=== PATIENT | female | born 1985 | race Asian ===

== ENCOUNTER 2019-07-29 08:28 | Inpatient (IN) | payer OTHER ==
[2019-07-29] MEDS ORDERED: Lactated Ringers 1000 ML Bag* 1,000 ML IV ONE (09:48)
--- NOTE | 2019-07-29 10:01 | HP ---
General Information - Reason for Visit IUP at 38-3/7 with prelabor rupture of membranes - General Information Maternal Age: 33 Grav: 1 Para: 0 SAB: 0 IEA: 0 Estimated Due Date: 08/09/19 Determined By: LMP Maternal Blood Type and Rh: B Positive - Results this Serology/RPR Result: Non-Reactive Rubella Result: Immune HBsAg Result: Negative HIV Result: Negative GBS Culture Result: Negative Past Medical History Delivery History: See Records Pertinent Past Medical History: See Records Past Medical History Comment: Primigravida Pertinent Past Surgical History: None Past Surgical History Comment: None Pertinent Family History: Non-Contributory - Antepartal Records Antepartal Records: Reviewed, Complicated by: - Unplanned , elevated EPDS score on entry to care. Strong family support. Hypocoiled umbilical cord tracked with q 4 week growth sonos all WNL Review of Systems Constitutional: Comfortable CV Complaint: No Respiratory: Shortness of Breath: No Gastrointestinal: No Nausea/Vomiting, Normal Bowel Movement Genitourinary: Leaking Fluid, No Dysuria, No Bleeding Musculoskeletal: No Complaint, No Epigastric Pain Neurological: No Headache Movement: Normal Exam Allergies/Adverse Reactions: Allergies No Known Allergies Allergy (Verified 07/26/19 13:35) BP 96/74 HR 92 RR 18 SpO2 100% on RA - Measurements Height: 5 ft 6 in Weight: 172 lb Weight in lbs: [id number] Body Mass Index (BMI): 27.7 Pre- Weight: 128 lb Weight Gained This : 44 lbs and 0 ozs - Exam CVA: No CVA Tenderness Extremities: No Edema Heart: Normal Rhythm/Heart Sounds HEENT: No Significant Findings Lungs: Clear Bilaterally Rectal: Rectal Exam Deferred Reflexes: DTR 2+ Thyroid: No Thyromegaly - Abdominal Exam Abdomen Exam: Non-Tender - Ultrasound/Biophysical Profile Ultrasound Status: Not Done Targeted Exam Findings Estimated Weight: EFW 7lbs 9oz by sono 07/26/19 Cervical Exam: 1cm Effacement: Thick Station: -2 Presenting Part: Vertex Membrane Status: SROM Amniotic Fluid Evaluation: Gross Rupture Sterile Speculum Exam: Not done Bleeding/Discharge: None EFM Findings - External Monitor Findings Baseline Heart Rate: 130 External Monitor Findings: Accelerations Present, No Pattern of Variable or Late Decelerations, Variability Moderate, Baseline Stable External Monitor Findings Comment: No evidence of metabolic acidemia Contractions: Irregular, Mild Assessment/Plan - Assessment IUP at 38-3/7 with prelabor rupture of membranes No evidence of metabolic acidemia Hypocoiled umbilical cord noted on level II sono - Plan Plan: Observe Plan Comment: Recommend augmentation of labor in presence of rupture. Pt with strong preference to delay despite being counseled on possible risks of infection to mother, fetus and labor process. Agrees to re-eval at 12 hours s/p PROM or 1500 , sooner PRN. In presence of hypocoild umbilical cord agrees to continuous EFM. Pt will want a labor epidural in active labor. Agrees to IV placement at this time. Dr. Arias aware of pt presence and condition. Agrees with plan - Date/Time of Admission Date of Admission: 07/29/19 Time of Admission: 09:17
[2019-07-29 11:17] LABS: ABS Lymphocytes 1.2 10^3/ul (1.0-4.8); ABS Monocytes 0.5 10^3/ul (0-0.8); ABS Neutrophils 3.9 10^3/ul (1.5-7.7); Eosinophil % 0.3 %; Hematocrit 35 % (35-47); Hemoglobin 11.8 g/dL (12.0-16.0); Lymphocyte % 21.3 %; Mean Corpuscular HGB Conc 33 g/dL (31-36); Mean Corpuscular Hemoglobin 29 pg (27-31); Mean Corpuscular Volume 87 fL (80-97); Mean Platelet Volume 9.8 fL (7.4-10.4); Nucleated Red Blood Cells % 0.2; Platelet Count 168 10^3/uL (150-450); Red Blood Count 4.05 10^6 /uL (3.70-4.87); Red Cell Distribution Width 14 % (10-15); White Blood Count 5.7 10^3/uL (3.5-10.8)
[2019-07-29 11:25] LABS: Urine Benzodiazepine Screen None Detected (None Detect); Urine Opiates Screen None Detected (None Detect)
--- NOTE | 2019-07-29 15:21 | PN ---
Progress Note - Progress Note Date of Service: 07/29/19 Note: S: Pt resting comfortably on ball. Had lunch. Denies feeling any uncomfortable UCs. O: BP 122/89 HR 82 T 98.2 FHT 135bpm. Moderate variability. +Accels. No decels UCs q 2 min, mild pt denies feeling VE deferred in presence of rupture A: IUP at 38-3/7 with prelabor rupture of membranes No evidence of metabolic acidemia P: Lengthy review of recommendation for augmentation in presence of rupture as pt is not yet in active labor. Many questions answered re: length of time to delivery s/p rupture, risk of infection, effectiveness of IV pitocin in starting labor. Reviewed. After discussion pt agrees to augmentation by IV pitocin.
[2019-07-29] MEDS ORDERED: Oxytocin in LR* 20 UNITS/1,000 ML BAG IVPB SCH (16:00)
--- NOTE | 2019-07-29 18:44 | PN ---
Progress Note - Progress Note Date of Service: 07/29/19 Note: S: Paged by RN to review FHT due to variable decels with some UCs. Pt in R lateral with IV fluids running. RN turned down IV pitocin O: BP 110/81 HR 107 Afebrile FHT 130bpm. Moderate variability. Occ variable decels with UCs, recovers to baseline UCs q 2-4, IV pit at 6mu/min VE Pt did not tolerate well. V. posterior 1cm/thick/vtx -1 to 0 A: IUP at 38-3/7 with PROM in latent labor Cat II FHT P: Enc positioning, fluid bolus, close monitoring of maternal/ status.
--- NOTE | 2019-07-29 23:45 | PN ---
Progress Note - Progress Note Date of Service: 07/29/19 Note: S: Pt with slight grimace when UCs happen. Reports increased discomfort O: BP 132/82 HR 74 T 97.9 FHT 135bpm. Moderate variability. +Accels. No decels UCs q 1-4 IV pit at 12mu/min VE deferred in presence of PROM A: IUP at 38-3/7 with PROM in latent labor No evidence of metabolic acidemia P: Continue IV pitocin. Encourage rest. Consider therapeutic rest PRN.
[2019-07-29] MEDS ORDERED: OBEPIDURAL* 250 ML EPIDURAL ONE (23:59)
[2019-07-30] MEDS ORDERED: Bupivacaine 0.25% SDV PF* 10 ML VIAL INJ ONE (00:42)
[2019-07-30] MEDS ORDERED: EPHEDrine (Pressors)* 50 MG/ML VIAL IV PUSH PRN (01:04)
[2019-07-30] MEDS ORDERED: Sodium Citrate/Citric Acid* 15 ML UDC PO PRN (01:04)
[2019-07-30] MEDS ORDERED: Phenylephrine 40 MCG/ML SYRINGE IV PUSH PRN (01:04)
[2019-07-30] MEDS ORDERED: Lactated Ringers 1000 ML Bag* 1,000 ML IV ONE (01:04)
[2019-07-30] MEDS ORDERED: Famotidine TAB* 20 MG PO PRN (01:04)
--- NOTE | 2019-07-30 01:38 | PN ---
Progress Note - Progress Note Date of Service: 07/30/19 Note: S: Pt comfortable s/p epidural placement. Pt's father at bedside attentive and supportive. Pt vocalizes a lot of anxiety about where she's at, shaking in labor , jumpy to any touch but reports coping much better now that she's comfortable O: BP 115/70 HR 109 T 97.7 FHT 125bpm. Moderate variability. +Accels. No decels UCs q 2-3 IV pit at 12mu/min VE 1-2cm/50%/vtx -2 +bloody show A: IUP at 38-2/7 with PROM in early active labor No evidence of metabolic acidemia Better coping s/p pain relief P: Enc rest. Continue IV pitocin. Close monitoring of maternal/ status
[2019-07-30] MEDS ORDERED: Lactated Ringers 1000 ML Bag* 1,000 ML IV SCH ×2 (02:00→19:00)
[2019-07-30] MEDS ORDERED: OBEPIDURAL* 250 ML EPIDURAL SCH (02:00)
--- NOTE | 2019-07-30 08:26 | PN ---
Progress Note - Progress Note Date of Service: 07/30/19 Note: S: Reports she got about four hours of sleep, feeling more rested. Initially very numb with epidural but now able to feel some tightening. Denies rectal pressure O: B/P: 129/83, P: 65, R: 18, T: 98.4 FHR: baseline 120, moderate variability, +accelerations, many early decelerations, occasional variable decelerations UCs: q2-3 min, moderate to palpation VE: 5.5/75/-2 Pitocin at 12 mu/min ROM > 30 hrs A: IUP at 38 2/7 weeks Category II FHR, doubt metabolic acidemia early active labor GBS negative P: Continue position changes to promote oxygenation and labor progress Continue pitocin per protocol Reassess PRN Anticipate SVB
--- NOTE | 2019-07-30 09:18 | PN ---
Progress Note - Progress Note Date of Service: 07/30/19 Note: S: called to bedside following variable decel followed by two minute decel with contraction into the 90s. Gillian lying on her left side, O2 applied. States she is beginning to feel more pressure in her rectum but does not want a VE at this time O: B/P: 107/61, P: 59, R: 18, T: 98.2 FHR: now baseline 135, moderate variability, no accelerations, one variable deceleration UCs: q2-4 min, moderate to palpation Pitocin turned off A: IUP at 38 2/7 weeks Category II FHR, doubt metabolic acidemia Active labor P: Continue position changes to promote oxygenation Reassess PRN Anticipate SVB
[2019-07-30] MEDS ORDERED: Witch Hazel PAD* JAR ONE (14:09)
[2019-07-30] MEDS ORDERED: Dibucaine 1% 28.35 GM TUBE ONE (14:09)
[2019-07-30] MEDS ORDERED: Witch Hazel PAD* JAR TOPICAL PRN (18:32)
[2019-07-30] MEDS ORDERED: Dibucaine 1% 28.35 GM TUBE PR PRN (18:32)
[2019-07-30] MEDS ORDERED: Glycerin ADULT SUPP PR PRN (18:32)
--- NOTE | 2019-07-30 18:35 | PROCNOTE ---
[facility] OB: Delivery Note - Delivery A Date of : 07/30/19 Time of : 18:42 [place] Sex: Female Score 1 Minute: 8 Score 5 Minutes: 8 Gestational Age in Weeks and Days at Delivery: 38 Weeks and 4 Days Delivery Method: Spontaneous Vaginal Labor: Spontaneous Did Patient attempt ?: N/A, No Previous Amniotic Fluid: Clear Estimated Blood Loss: 500 Anesthesia/Analgesia: CEI for Labor Anesthesia Comment: [place] Delivered By: Lubna Humphreys - Nursery Level of Nursery: Regular/Bedside - Perineum Perineal Injury: 2nd Degree Perineal Injury Comment: and left labial Perineal Repair: By Delivering Practioner - 3-0 vicryl rapide - Events Delivery Events of Note: Pitocin During Labor, Supplemental O2 to Mother, Pushed > 3 Hours, ROM > 24 Hours - Additional Delivery Notes Additional Delivery Notes: at 38 3/7 experienced PROM at 0200 on 07/29/19. She began augmentation with pitocin and received a CEI per request with good pain relief. Progressed to complete and complete, began pushing with good maternal effort on 07/30/19 at 1200. Slow descent of vertex with category II FHR but moderate variability, good recovery to baseline, and accelerations present. Consult with Dr. Posada at 1530, advised ok for patient to continue pushing. Slow controlled delivery of head OA to VANESSA at 1742. Shoulders followed easily with next push, infant delivered to maternal abdomen. Terminal meconium noted. Dried and stimulated, bulb suctioned for copious secretions. HR 140 with spontaneous cry. Apgars 8 and 8. Cord clamped and cut x 2 by FOB once pulsations ceased, to warmer for exam by bat boy/girl for finding of hypocoiled cord on level II ultrasound. Total ROM = 39.75 hrs, no maternal fever in labor. Brisk bleeding noted; spontaneous, zoltan and intact placenta at 1752, fundus firm with massage. Active management for extended use of pitocin in labor, pitocin started at 200 cc/hr. Perineum and vagina carefully inspected, second degree laceration and left labial laceration noted and repaired in the usual fashion with 3-0 vicryl rapide. EBL = 500 cc. mother and stable at time of note , initiated.
[2019-07-30] MEDS ORDERED: Oxytocin in LR* 20 UNITS/1,000 ML BAG IVPB SCH (19:00)
[2019-07-30] MEDS ORDERED: Simethicone TAB* 80 MG TAB.CHEW PO SCH (21:00)
[2019-07-30] MEDS ORDERED: Ammonia Inhalant* 1 EA AMP ONE (21:07)
[2019-07-31] MEDS: Ibuprofen TAB* 600 MG PO SCH ×6 (00:24→22:00)
[2019-07-31] MEDS: Docusate CAP* 100 MG PO SCH ×4 (01:17→19:55)
[2019-07-31] MEDS ORDERED: Ammonia Inhalant* 1 EA AMP ONE (07:30)
[2019-07-31 08:29] LABS: ABS Eosinophils 0.1 10^3/ul (0-0.6); ABS Lymphocytes 1.8 10^3/ul (1.0-4.8); ABS Monocytes 0.7 10^3/ul (0-0.8); Eosinophil % 0.6 %; Hematocrit 26 % (35-47); Hemoglobin 8.7 g/dL (12.0-16.0); Lymphocyte % 15.4 %; Mean Corpuscular HGB Conc 33 g/dL (31-36); Mean Corpuscular Hemoglobin 29 pg (27-31); Mean Corpuscular Volume 87 fL (80-97); Mean Platelet Volume 9.5 fL (7.4-10.4); Platelet Count 120 10^3/uL (150-450); Red Blood Count 3.01 10^6 /uL (3.70-4.87); Red Cell Distribution Width 14 % (10-15); White Blood Count 11.6 10^3/uL (3.5-10.8)
[2019-07-31] MEDS: Ferrous Gluconate TAB* 324 MG TAB PO SCH ×2 (09:22→19:54)
[2019-07-31] MEDS: Acetaminophen TAB* 325 MG PO PRN ×3 (11:31→19:45)
--- NOTE | 2019-07-31 15:58 | PTEDU ---
Patient Name: ARLENE DIMAS DIMASARLENE selected video: Follow Me Mum: [facility] to Successful to view on 07/31/2019 sydnie t 3:56:28 PM from [id number]
--- NOTE | 2019-07-31 16:19 | PTEDU ---
Patient Name: ARLENE DIMAS ARLENE DIMAS selected video: BBOB: Nurturing Your Gorgeous &Growing Baby by to view on at 4:17:23 PM from [id number]
--- NOTE | 2019-07-31 16:50 | PTEDU ---
Patient Name: ARLENE DIMAS ARLENE DIMAS selected video: Never Ever Shake a Baby to view on 07/31/2019 at 4:49:11 PM from [id number]
--- NOTE | 2019-07-31 16:52 | PTEDU ---
Patient Name: ARLENE DIMAS ARLENE DIMAS selected video: Never Ever Shake a Baby to view on 07/31/2019 at 4:50:58 PM from [id number]
[2019-08-01] MEDS: Ibuprofen TAB* 600 MG PO SCH ×3 (01:00→14:00)
[2019-08-01 08:43] VITALS: BP 104/62
[2019-08-01] MEDS: Ferrous Gluconate TAB* 324 MG TAB PO SCH (11:28)
[2019-08-01] MEDS: Docusate CAP* 100 MG PO SCH ×2 (11:28→14:00)
[2019-08-01] MEDS: Acetaminophen TAB* 325 MG PO PRN (16:44)
== END 2019-08-01 17:43 | disposition home or self-care (01) | DRG 560 ==
LOC: MCHOBOUT 08:28 → MCHOB 09:17
PROVIDERS: ADMIT Midwife; ATTEND Midwife
PROC: 10E0XZZ Delivery of Products of Conception, External Approach (ICD-10-PCS; principal; 2019-07-30)
PROC: 4A1HXCZ Monitoring of Products of Conception, Cardiac Rate, External Approach (ICD-10-PCS; 2019-07-30)
PROC: 0KQM0ZZ Repair Perineum Muscle, Open Approach (ICD-10-PCS; 2019-07-30)
PROC: 0UQMXZZ Repair Vulva, External Approach (ICD-10-PCS; 2019-07-30)
DX: O42.12 Full-term premature rupture of membranes, onset of labor more than 24 hours following rupture (principal); Z37.0 Single live birth; O69.89X0 Labor and delivery complicated by other cord complications, not applicable or unspecified; O70.1 Second degree perineal laceration during delivery; O90.81 Anemia of the puerperium; O77.0 Labor and delivery complicated by meconium in amniotic fluid; O76 Abnormality in fetal heart rate and rhythm complicating labor and delivery; Z3A.38 38 weeks gestation of pregnancy
CPT/HCPCS: 36415; 80307; 85025; 86850; 86900; 86901; A9270-GY; J3490

== ENCOUNTER 2024-02-27 08:02 | Inpatient (IN) ==
[2024-02-27] MEDS ORDERED: Lidocaine 1% VIAL 10 MG/ML 30 ML VIAL INJ PRN (09:21)
[2024-02-27 10:04] LABS: Urine Benzodiazepine Screen None Detected (None Detect); Urine Cannabinoids Screen None Detected (None Detect); Urine Opiates Screen None Detected (None Detect)
[2024-02-27 10:16] LABS: ABS Lymphocytes 1.3 10^3/uL (1.0-4.8); ABS Monocytes 0.7 10^3/uL (0.0-0.9); ABS Neutrophils 6.8 10^3/uL (1.5-7.6); ABS Nucleated RBC 0.01 10^3/ul; Eosinophil % 0.6 %; Hematocrit 37.2 % (35-45); Lymphocyte % 14.2 %; Mean Corpuscular Hemoglobin 33.1 pg (27-33); Mean Corpuscular Volume 94.5 fL (80-97); Mean Platelet Volume 8.7 fL (7.5-11.2); Nucleated Red Blood Cells % 0.1 %/100WBC (0.0-0.8); Platelet Count 146 10^3/uL (150-450); Red Blood Count 3.94 10^6/uL (3.63-4.92); Red Cell Distribution Width 14.6 % (12-17); White Blood Count 8.8 10^3/uL (3.8-11.8)
[2024-02-27] MEDS: Lactated Ringers 1000 ml BAG 1,000 ML IV SCH (10:26)
[2024-02-27] MEDS: Oxytocin in LR 20,000 MILLI.UNIT/1,000 ML BAG IV SCH (10:37)
[2024-02-27] MEDS: Lactated Ringers 1000 ml BAG 1,000 ML IV ONE (16:19)
[2024-02-27] MEDS: OBEPIDURAL (200 ML) 200 ML EPIDURAL ONE (16:46)
[2024-02-27] MEDS ORDERED: Phenylephrine 40 mcg/mL 10mL (400mcg) SYRINGE IV PUSH PRN ×2 (16:56)
[2024-02-27] MEDS ORDERED: Sodium Citrate/Citric Acid LIQ 15 ML UDC PO PRN (16:56)
[2024-02-27 18:59] LABS: Urine Appearance Clear; Urine Bilirubin Negative (Negative); Urine Blood Negative (Negative); Urine Color Colorless; Urine Glucose Negative (Negative); Urine Ketones Negative (Negative); Urine Nitrite Negative (Negative); Urine Protein Negative (Negative); Urine Specific Gravity 1.008 (1.002-1.030); Urine Urobilinogen Negative (Negative)
[2024-02-28] MEDS ORDERED: Glycerin ADULT 2.4 gm SUPP PR PRN (08:19)
[2024-02-28] MEDS: Witch Hazel PAD JAR TOPICAL PRN (08:45)
[2024-02-28] MEDS: Dibucaine 1% OINT 28.35 GM TUBE PR PRN (08:45)
[2024-02-28] MEDS ORDERED: Lactated Ringers 1000 ml BAG 1,000 ML IV SCH (09:00)
[2024-02-28] MEDS: Lactated Ringers 1000 ml BAG 1,000 ML IV ONE (11:24)
[2024-02-28] MEDS: OBEPIDURAL (200 ML) 200 ML EPIDURAL SCH (11:24)
[2024-02-28] MEDS: Lidocaine 1.5% EPI 1:200,000 30 ML SDV ONE (11:25)
[2024-02-28] MEDS: Lactated Ringers 1000 ml BAG 1,000 ML IV SCH (11:25)
[2024-02-28] MEDS: Buffered Lidocaine 1% SYRIN 1 ml INTRADERM ONE (11:25)
[2024-02-28] MEDS: Oxytocin in LR 20,000 MILLI.UNIT/1,000 ML BAG IV SCH (11:33)
[2024-02-29 07:42] LABS: ABS Eosinophils 0.2 10^3/uL (0.0-0.5); ABS Monocytes 0.6 10^3/uL (0.0-0.9); ABS Neutrophils 7.6 10^3/uL (1.5-7.6); Eosinophil % 1.6 %; Hematocrit 33.6 % (35-45); Hemoglobin 11.6 g/dL (11.5-14.3); Lymphocyte % 19.3 %; Mean Corpuscular Hemoglobin 33.2 pg (27-33); Mean Corpuscular Hgb Conc 34.6 g/dL (31-36); Mean Platelet Volume 8.7 fL (7.5-11.2); Platelet Count 118 10^3/uL (150-450); Red Cell Distribution Width 14.4 % (12-17); White Blood Count 10.4 10^3/uL (3.8-11.8)
[2024-03-01 08:18] VITALS: BP 96/55
[2024-03-01] MEDS: Measles, Mumps,Rubella VACC 0.5 ML/VIAL SUBCUT ONE (11:31)
== END 2024-03-01 12:15 | disposition home or self-care (01) | DRG 560 ==
LOC: MCHOBOUT 08:02 → MCHOB 09:23 → UNDODISIN 12:35 → MCHOB 02-28 14:56
PROVIDERS: ADMIT Midwife; ATTEND Midwife